=== PATIENT | female | born 1960 | race Caucasian/White ===

== ENCOUNTER 2019-02-26 14:16 | Emergency (ER) | payer OTHER ==
[2019-02-26 14:43] VITALS: BMI 28.3
[2019-02-26] MEDS ORDERED: ACETAMINOPHEN 1000 MG/100 ML VIAL (NON FORMULARY) IVPB ONE (14:50)
--- NOTE | 2019-02-26 15:14 | PDOC ---
History of Present Illness - General Chief Complaint: Nausea/Vomiting Stated Complaint: NAUSEA VOMITING Time Seen by Provider: 02/26/19 14:38 History Source: Family - History of Present Illness Initial Comments: 02/26/19 15:07 58 yo F PMH of HTN, DVT presents to the ED with sudden onset headache, n/v. pt states the symptoms began at 12 pm. she rates the pain a 9/10, states it is throbbing , non radiating. pt states the pain is parietal and occipital regions. pt states she hasnt had a headache like this in the past. she states that last time she felt this poorly she had a DVT. she denies fevers or recent illness. denies photophobia. denies positional changes. denies recent trauma. Past History - Travel Traveled outside of the country in the last 30 days: No - Past Medical History Allergies/Adverse Reactions: Allergies Allergy/AdvReac Type Severity Reaction Status Date / Time No Known Allergies Allergy Verified 02/26/19 14:43 COPD: No HTN: Yes Other medical history: DVT - Psycho Social/Smoking Cessation Hx Smoking History: Unknown if ever smoked Have you smoked in the past 12 months: No Information on smoking cessation initiated: No Hx Alcohol Use: No Drug/Substance Use Hx: No Review of Systems - Review of Systems Able to Perform ROS?: Yes Constitutional: Yes: Diaphoresis. No: Chills, Fever HEENTM: No: Blurred Vision Respiratory: Yes: Shortness of Breath Cardiac (ROS): No: Chest Pain, Irregular Heart Rate, Lightheadedness ABD/GI: Yes: Nausea, Vomiting. No: Blood Streaked Bowels, Tarry Stools : No: Dysuria Neurological: Yes: Headache, Weakness *Physical Exam - Vital Signs Last Vital Signs Temp Pulse Resp BP Pulse Ox 98.0 F 86 16 159/92 99 02/26/19 14:20 02/26/19 14:20 02/26/19 14:20 02/26/19 14:20 02/26/19 14:20 - Physical Exam General Appearance: Yes: Nourished, Appropriately Dressed HEENT: positive: EOMI, EVIE, Normal Voice, Pharynx Normal. negative: Photophobia Neck: negative: Tender, Lymphadenopathy (R), Lymphadenopathy (L), Rigidity Respiratory/Chest: positive: Lungs Clear, Normal Breath Sounds. 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 -r/o SAH vs migraines -CBC, CMP -ekg -CT head -cardiac profile -IV tylenol -IVF 1 L 02/26/19 15:20 02/26/19 18:43 CT head shows SAH . transfer accepted to [facility] for STAT to Dr. Saini as per neurosurg at [facility] will start cardene drip SBP<140, keppra 500 mg , NO NSAIDs, antiemetics Discharge - Discharge Information Problems reviewed: Yes Clinical Impression/Diagnosis: Subarachnoid hemorrhage Disposition: TRANSFER ACUTE CARE/OTHER HOSP - Follow up/Referral Referrals: Mayra Arroyo MD [Primary Care Provider] - - Patient Discharge Instructions - Post Discharge Activity
[2019-02-26] MEDS ORDERED: SODIUM CHLORIDE 1,000 ML IV STA ×2 (15:19→15:30)
[2019-02-26] MEDS ORDERED: METOCLOPRAMIDE HCL INJECTION 10 MG/2 ML VIAL IVPUSH ONE (15:24)
--- NOTE | 2019-02-26 15:25 | PDOC ---
Attending Attestation - Resident Resident Name: KatharineFrancisca - ED Attending Attestation I have performed the following: I have examined & evaluated the patient, The case was reviewed & discussed with the resident, I agree w/resident's findings & plan - HPI HPI: 02/26/19 15:25 58 yo F PMH of HTN, DVT presents to the ED with sudden onset headache, n/v - beginning at 12pm. she rates the pain a 9/10, states it is throbbing , non radiating. pt states the pain is parietal and occipital regions. pt states she hasnt had a headache like this in the past. she states that last time she felt this poorly she had a DVT. she denies fevers or recent illness, no prodromal sx. no weakness or paresthesias. no vertigo, dizziness, falls or seizure/AMS, gait instability. denies photophobia. denies positional changes. denies recent trauma. Differential diagnosis for headache patient does note she has been stressed with running had a drive for school recently and patient does admit to getting quite dizzy with motion sickness 02/26/19 15:36 - Physicial Exam PE: 02/26/19 15:34 Agree with the resident's HPI and PE as documented in the electronic medical record. NAD, well appearing, EOMI, PERRL, nl conjunctiva, anicteric; neck supple. lungs clear, RRR, abdomen soft nontender. no rebound, guarding. Back nontender. FAIRCHILD x4, No peripheral edema. normal color for ethnicity, WWP. my focused neuro exam: Alert, oriented to person time and place. CN II-XII grossly intact. Strength prox and distally 5/5 throughout. Sensation grossly intact to light touch. FAIRCHILD x4. No cerebellar signs, no dysmetria, bilateral finger to nose and heel to hunt equal and symmetric. Speech clear. - Medical Decision Making 02/26/19 15:34 Vital Signs Temp Pulse Resp BP Pulse Ox 98.0 F 86 16 159/92 99 02/26/19 14:20 02/26/19 14:20 02/26/19 14:20 02/26/19 14:20 02/26/19 14:20 VS reviewed, unremarkable, mildly hypertensive 159/90s - recheck after meds DDX headache: migraine, tension, cluster headache, SAH, CVA, head bleed/ICH. arrhythmia, ACS due to acute onset of sx, <6 hours - perform CT head with 100% sensitivity to eval for head bleed/SAH. given basic analgesia, antiemetics, IVF. labs/lytes, cardiac profile. reassess dispo pending CTH, s/o dr Cerda pending imaging. 02/26/19 16:35 02/27/19 07:18 Heart Score/ECG Review #1 ECG reviewed & interpreted by me at: 15:00 General ECG Interpretation: Sinus Rhythm, Normal Rate, Normal Intervals Compared to previous ECG there are: Previous ECG unavail 02/26/19 15:38 sinus rhythm at 68 bpm
[2019-02-26] MEDS ORDERED: ONDANSETRON 4 MG/2 ML VIAL IVPB ONE (15:30)
[2019-02-26] MEDS ORDERED: ACETAMINOPHEN INJECTION 100 ML IVPB ONE (16:22)
[2019-02-26] MEDS ORDERED: METOCLOPRAMIDE HCL INJECTION 10 MG/2 ML VIAL ONE (16:22)
[2019-02-26 17:34] LABS: BASO % 0.2 % (0-2.0); EOS % 0.1 % (0-4.5); HEMATOCRIT 39.6 % (32.4-45.2); HEMOGLOBIN 13.4 GM/dL (10.7-15.3); LYMPH % 6.4 % (8-40); MCH 30.6 pg (25.7-33.7); MCHC 33.8 g/dl (32.0-36.0); MEAN CELL VOLUME 90.4 fl (80-96); MEAN PLT VOLUME 10.7 fl (7.5-11.1); MONO % 2.3 % (3.8-10.2); PLATELET COUNT 240 K/MM3 (134-434); RBC 4.38 M/mm3 (3.60-5.2); RDW 12.8 % (11.6-15.6); WHITE BLOOD COUNT 14.5 K/mm3 (4.0-10.0)
[2019-02-26 18:06] LABS: ALBUMIN 4.3 g/dl (3.4-5.0); BILIRUBIN,TOTAL 0.4 mg/dL (0.2-1); BLOOD UREA NITROGEN 18.4 mg/dL (7-18); CALCIUM 9.7 mg/dL (8.5-10.1); CREATININE 0.8 mg/dL (0.55-1.3); MAGNESIUM 1.9 mg/dL (1.8-2.4); PHOSPHOROUS 2.9 mg/dL (2.5-4.9); POTASSIUM 3.6 mmol/L (3.5-5.1); TOT PROT 8.2 g/dl (6.4-8.2)
--- NOTE | 2019-02-26 18:31 | PDOC ---
*Physical Exam - Vital Signs Last Vital Signs Temp Pulse Resp BP Pulse Ox 98.0 F 86 16 159/92 99 02/26/19 14:20 02/26/19 14:20 02/26/19 14:20 02/26/19 14:20 02/26/19 14:20 ED Treatment Course - LABORATORY CBC & Chemistry Diagram: 02/26/19 17:00 02/26/19 17:00 - ADDITIONAL ORDERS Additional order review: Laboratory Results 02/26/19 02/26/19 17:00 17:00 Sodium 140 Potassium 3.6 Chloride 107 Carbon Dioxide 26 Anion Gap 7 L BUN 18.4 H Creatinine 0.8 Est GFR (CKD-EPI)AfAm 94.85 Est GFR (CKD-EPI)NonAf 81.84 Random Glucose 132 H Calcium 9.7 Phosphorus 2.9 Magnesium 1.9 Total Bilirubin 0.4 AST 22 ALT 26 Alkaline Phosphatase 48 Creatine Kinase 157 Troponin I < 0.02 Total Protein 8.2 Albumin 4.3 02/26/19 17:00 RBC 4.38 MCV 90.4 MCHC 33.8 RDW 12.8 MPV 10.7 Neutrophils % 91.0 H Lymphocytes % 6.4 L Monocytes % 2.3 L Eosinophils % 0.1 Basophils % 0.2 - Medications Given in the ED: ED Medications Discontinued Medications Generic Name Dose Route Start Last Admin Trade Name Drew PRN Reason Stop Dose Admin Acetaminophen 1,000 mg 02/26/19 14:50 02/26/19 17:25 Ofirmev Injection - IVPB 02/26/19 14:51 1,000 mg ONCE ONE Administration Sodium Chloride 1,000 mls @ 1,000 mls/hr 02/26/19 15:19 02/26/19 17:02 Normal Saline - IV 02/26/19 16:18 1,000 mls/hr ASDIR STA Administration Metoclopramide HCl 10 mg 02/26/19 15:24 02/26/19 17:03 Reglan Injection - IVPUSH 02/26/19 15:25 10 mg ONCE ONE Administration Medical Decision Making - Critical Care Time Total Critical Care Time (minutes): 30 Critical Care Statement: The care of this patient involved high complexity decision making to prevent further life threatening deterioration of the patient 's condition and/or to evaluate & treat vital organ system(s) failure or risk of failure. - Medical Decision Making 02/26/19 18:29 Received signout on this 58y/o F who presented with headache. labs wnl, plan at signout to check ct head and reassess. pt feeling better after tylenol/reglan. CT head, on my prelim review, shows SAH without shift or herniation. 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 02/26/19 18:57 [address] for transfer to [facility], signout given by Dr. Alcantar to Dr. June of [facility] [place]. Discharge - Discharge Information Problems reviewed: Yes Clinical Impression/Diagnosis: Subarachnoid hemorrhage Disposition: TRANSFER ACUTE CARE/OTHER HOSP - Follow up/Referral Referrals: Mayar Arroyo MD [Primary Care Provider] - - Patient Discharge Instructions - Post Discharge Activity - Transfer to Acute Care Facility Receiving Facility Name: [facility] Accepting Physician:: Rodo NIH Stroke Scale - Last Known Well Date/Time & Onset Date Last Known Well: 02/26/19 Time Last Known Well: 12:00 - Initial Evaluation Level of consciousness: Alert Ask patient the month and their age: Answers both correctly Ask patient to open & close eyes; make fist and let go: Obeys both correctly Best gaze (horizontal eye movement): Normal Visual field testing: No visual field loss Facial paresis (Show teeth/raise eyebrows/close eyes tight): Normal symmetrical movement Motor Function: Left Arm: Normal Motor Function: Right Arm: Normal (extends arm 90 (or 45) degrees for 10 seconds without drift Motor Function: Left Leg: Normal (extends leg 30 degrees for 5 seconds without drift) Motor Function: Right Leg: Normal (extends leg 30 degrees for 5 seconds without drift) Limb Ataxia: No ataxia Sensory(Use pinprick test arms,legs,trunk,face/side to side): Normal Best language (Describe picture, name items, read sentences): No Aphasia Dysarthria (read several words): Normal articulation Extinction and Inattention: No abnormality - Total Score NIH Stroke Scale Score: 0
[2019-02-26] MEDS ORDERED: levETIRAcetam 500 MG/5 ML INJECTION VIAL IVPB ONE ×2 (18:42→18:55)
[2019-02-26] MEDS ORDERED: NICARDIPINE 25 MG in DEXTROSE 5%-WATER - 240 ML IVPB SCH (18:45)
[2019-02-26 19:03] VITALS: TEMP 98.8
[2019-02-26 19:23] LABS: PLATELET ESTIMATE ADEQUATE
[2019-02-26 19:26] VITALS: BP 137/70; PULSE 67
--- NOTE | 2019-03-01 11:00 | EKG ---
Test Reason : Blood Pressure : / mmHG Vent. Rate : 068 BPM Atrial Rate : 068 BPM P-R Int : 146 ms QRS Dur : 086 ms QT Int : 434 ms P-R-T Axes : 077 022 042 degrees QTc Int : 461 ms NORMAL SINUS RHYTHM MINIMAL VOLTAGE CRITERIA FOR LVH, MAY BE NORMAL VARIANT BORDERLINE ECG NO PREVIOUS ECGS AVAILABLE Confirmed by CHRYSTAL VALENCIA MD ([id number]) on 03/01/2019 11:00:11 AM Referred By: Confirmed By:CHRYSTAL VALENCIA MD
== END 2019-02-26 19:39 | disposition short-term general hospital (02) ==
LOC: JER 14:16
PROC: 3E033NZ Introduction of Analgesics, Hypnotics, Sedatives into Peripheral Vein, Percutaneous Approach (ICD-10-PCS; principal; 2019-02-26)
PROC: 3E033GC Introduction of Other Therapeutic Substance into Peripheral Vein, Percutaneous Approach (ICD-10-PCS; 2019-02-26)
PROC: 3E0337Z Introduction of Electrolytic and Water Balance Substance into Peripheral Vein, Percutaneous Approach (ICD-10-PCS; 2019-02-26)
DX: I60.9 Nontraumatic subarachnoid hemorrhage, unspecified (principal); I10 Essential (primary) hypertension; Z86.718 Personal history of other venous thrombosis and embolism
CPT/HCPCS: 36415; 70450-TC; 80053; 82550; 82553; 83735; 84100; 84484; 85025; 93005; 93010; 96361; 96374; 96375; 99283-25; J0131; J7030